=== PATIENT | male | born 1940 | race Caucasian/White ===

== ENCOUNTER 2016-04-09 11:38 | Outpatient (CLI) | payer MEDICARE, BC | END 2016-04-09 23:59 | disposition home or self-care (01) | LOC: WOU 11:38 | PROVIDERS: ATTEND Specialist | DX: I89.0 Lymphedema, not elsewhere classified (principal); Z86.718 Personal history of other venous thrombosis and embolism; I87.2 Venous insufficiency (chronic) (peripheral); Z85.828 Personal history of other malignant neoplasm of skin; Z92.3 Personal history of irradiation; M17.0 Bilateral primary osteoarthritis of knee; Z96.611 Presence of right artificial shoulder joint | CPT/HCPCS: G0463 ==

== ENCOUNTER 2016-07-02 13:02 | Outpatient (CLI) | payer MEDICARE, BC | END 2016-07-02 23:59 | disposition home health service (06) | LOC: WOU 13:02 | PROVIDERS: ATTEND Specialist | DX: I87.2 Venous insufficiency (chronic) (peripheral) (principal); Z85.828 Personal history of other malignant neoplasm of skin; Z92.3 Personal history of irradiation; Z96.611 Presence of right artificial shoulder joint; Z86.718 Personal history of other venous thrombosis and embolism; I89.0 Lymphedema, not elsewhere classified; M17.0 Bilateral primary osteoarthritis of knee; Z87.81 Personal history of (healed) traumatic fracture; Z79.01 Long term (current) use of anticoagulants; L97.821 Non-pressure chronic ulcer of other part of left lower leg limited to breakdown of skin; L97.811 Non-pressure chronic ulcer of other part of right lower leg limited to breakdown of skin; L97.511 Non-pressure chronic ulcer of other part of right foot limited to breakdown of skin | CPT/HCPCS: A6197; A6402; G0463 ==

== ENCOUNTER 2016-07-09 13:04 | Outpatient (CLI) | payer MEDICARE, BC | END 2016-07-09 23:59 | disposition home health service (06) | LOC: WOU 13:04 | PROVIDERS: ATTEND Specialist | DX: I83.222 Varicose veins of left lower extremity with both ulcer of calf and inflammation (principal); I89.0 Lymphedema, not elsewhere classified; Z85.828 Personal history of other malignant neoplasm of skin; Z92.3 Personal history of irradiation; Z96.611 Presence of right artificial shoulder joint; Z86.718 Personal history of other venous thrombosis and embolism; M17.0 Bilateral primary osteoarthritis of knee; Z87.81 Personal history of (healed) traumatic fracture; Z79.01 Long term (current) use of anticoagulants; L97.209 Non-pressure chronic ulcer of unspecified calf with unspecified severity | CPT/HCPCS: A6197; A6402; G0463 ==

== ENCOUNTER 2016-07-30 10:58 | Outpatient (CLI) | payer MEDICARE, BC | END 2016-07-30 23:59 | disposition home or self-care (01) | LOC: WOU 10:58 | PROVIDERS: ATTEND Specialist | DX: I83.222 Varicose veins of left lower extremity with both ulcer of calf and inflammation (principal); L97.211 Non-pressure chronic ulcer of right calf limited to breakdown of skin; I83.891 Varicose veins of right lower extremity with other complications; Z85.828 Personal history of other malignant neoplasm of skin; Z86.718 Personal history of other venous thrombosis and embolism; Z79.01 Long term (current) use of anticoagulants | CPT/HCPCS: A6197; A6402; G0463 ==

== ENCOUNTER 2016-09-10 12:50 | Outpatient (CLI) | payer MEDICARE, BC | END 2016-09-10 23:59 | disposition home health service (06) | LOC: WOU 12:50 | PROVIDERS: ATTEND Specialist | DX: I83.222 Varicose veins of left lower extremity with both ulcer of calf and inflammation (principal); L97.211 Non-pressure chronic ulcer of right calf limited to breakdown of skin; I89.0 Lymphedema, not elsewhere classified; R60.0 Localized edema; Z86.718 Personal history of other venous thrombosis and embolism; Z79.01 Long term (current) use of anticoagulants | CPT/HCPCS: 29580; A6197 ==

== ENCOUNTER 2016-09-24 13:13 | Outpatient (CLI) | payer MEDICARE, BC | END 2016-09-24 23:59 | disposition home health service (06) | LOC: WOU 13:13 | PROVIDERS: ATTEND Specialist | DX: I83.012 Varicose veins of right lower extremity with ulcer of calf (principal); L97.211 Non-pressure chronic ulcer of right calf limited to breakdown of skin; Z96.611 Presence of right artificial shoulder joint; I89.0 Lymphedema, not elsewhere classified; I83.891 Varicose veins of right lower extremity with other complications | CPT/HCPCS: 29580; A6402 ==

== ENCOUNTER 2016-10-08 13:40 | Outpatient (CLI) | payer MEDICARE, BC | END 2016-10-08 23:59 | disposition home health service (06) | LOC: WOU 13:40 | PROVIDERS: ATTEND Specialist | DX: I89.0 Lymphedema, not elsewhere classified (principal); I87.2 Venous insufficiency (chronic) (peripheral); M17.0 Bilateral primary osteoarthritis of knee; I83.11 Varicose veins of right lower extremity with inflammation; Z96.611 Presence of right artificial shoulder joint; Z79.01 Long term (current) use of anticoagulants; Z86.718 Personal history of other venous thrombosis and embolism; I70.209 Unspecified atherosclerosis of native arteries of extremities, unspecified extremity | CPT/HCPCS: 29580-50 ==

== ENCOUNTER 2016-11-19 13:45 | Outpatient (CLI) | payer MEDICARE, BC | END 2016-11-19 23:59 | disposition home health service (06) | LOC: WOU 13:45 | PROVIDERS: ATTEND Specialist | DX: I89.0 Lymphedema, not elsewhere classified (principal); R60.0 Localized edema; M17.0 Bilateral primary osteoarthritis of knee | CPT/HCPCS: 29580-50 ==

== ENCOUNTER 2017-08-12 13:00 | Outpatient (CLI) | payer MEDICARE, BC | END 2017-08-12 23:59 | disposition home health service (06) | LOC: WOU 13:00 | PROVIDERS: ATTEND Specialist | DX: I89.0 Lymphedema, not elsewhere classified (principal); I87.2 Venous insufficiency (chronic) (peripheral); L97.919 Non-pressure chronic ulcer of unspecified part of right lower leg with unspecified severity; L40.59 Other psoriatic arthropathy; M17.2 Bilateral post-traumatic osteoarthritis of knee; Z86.718 Personal history of other venous thrombosis and embolism | CPT/HCPCS: 29580-50 ==